=== PATIENT | male | born 1965 | race Caucasian/White ===

== ENCOUNTER 2017-12-08 20:05 | Emergency (ER) | payer BC, OTHER ==
[2017-12-08 21:19] VITALS: BP 138/66
--- NOTE | 2017-12-08 21:41 | UC ---
Throat Pain/Nasal Elliot HPI - HPI Summary HPI Summary: Since Thu pt with [facility], [facility] Pt with cough - green production no sore throat no ear pain sinuses plugged + PND continue chills decreased po mild diarrhea no nausea no flu vaccine Pt's medications reviewed this visit - History of Current Complaint Chief Complaint: UCGeneralIllness Stated Complaint: COUGH CONGESTION CHILLS Time Seen by Provider: 12/08/17 21:41 Hx Obtained From: Patient Onset/Duration: Gradual Onset Severity: Moderate Pain Intensity: 0 Cough: Productive Associated Signs & Symptoms: Positive: Wheezing, Fever - Allergies/Home Medications Allergies/Adverse Reactions: Allergies Allergy/AdvReac Type Severity Reaction Status Date / Time No Known Allergies Allergy Verified 12/08/17 21:19 PMH/Surg Hx/FS Hx/Imm Hx Previously Healthy: Yes - Surgical History Surgical History: Yes Surgery Procedure, Year, and Place: varicose vein removed 1994. appendectomy 1976. hernia 12/2015 - Family History Known Family History: Positive: Hypertension - Social History Occupation: Employed Full-time Lives: With Family Alcohol Use: Daily Alcohol Amount: 5-6 beers Substance Use Type: Marijuana Substance Use Comment - Amount & Last Used: 07/30/14 Smoking Status (MU): Former Smoker Review of Systems Constitutional: Fever, Fatigue Skin: Negative ENT: Nasal Discharge, Sinus Congestion Respiratory: Cough Cardiovascular: Negative Gastrointestinal: Negative Genitourinary: Negative Motor: Negative Neurovascular: Negative Musculoskeletal: Negative Neurological: Negative Psychological: Negative All Other Systems Reviewed And Are Negative: Yes Physical Exam Triage Information Reviewed: Yes Appearance: No Pain Distress, Well-Nourished Vital Signs: Initial Vital Signs Temp 97.9 F 12/08/17 21:15 Pulse 69 12/08/17 21:15 Resp 18 12/08/17 21:15 BP 138/66 12/08/17 21:15 Pulse Ox 99 12/08/17 21:15 Vital Signs Reviewed: Yes Eye Exam: Normal Eyes: Positive: Conjunctiva Clear ENT: Positive: Hearing grossly normal, Pharynx normal, Nasal congestion, TMs normal, Uvula midline Dental Exam: Normal Neck exam: Normal Neck: Positive: 1 Respiratory: Positive: Other: - coarse cough scattered wheeze no accessory muscle Cardiovascular Exam: Normal Cardiovascular: Positive: RRR, No Murmur Abdominal Exam: Normal Abdomen Description: Positive: Nontender, No Organomegaly Musculoskeletal Exam: Normal Musculoskeletal: Positive: Strength Intact Neurological Exam: Normal Neurological: Positive: Alert Psychological Exam: Normal Skin Exam: Normal Re-Evaluation - Re-Evaluation First Eval Comment: Pt improved following neb. states feels easire. wheezing resolved. mdi with spacer. amox. return precautions Throat Pain/Nasal Course/Dx - Course Course Of Treatment: Pt with coarse cough wheeze, body ache x 5 days. Will give neb, check flu and reassess. secretion precaution. hydrate. antipyretic - Differential Dx/Diagnosis Provider Diagnoses: acute bronchitis Discharge - Discharge Plan Condition: Stable Disposition: HOME Prescriptions: Amoxicillin PO (*) [Amoxicillin 875 MG (*)] 875 mg PO BID #20 tab Patient Education Materials: Acute Bronchitis (ED) Forms: *Work Release Referrals: Kristi Clements MD [Primary Care Provider] - Additional Instructions: - Stay well hydrated. Drink plenty of non-alcoholic, non-caffinated beverages. - Alternate ibuprofen (Advil, Motrin) 600mg and Tylenol 1000mg every 3 hours for pain or fever. Take with food. Do NOT take for more than 4-5 days. - These infections are spread by secretions - do NOT share eating or drinking utensils - clean items you share with other people such as cell phones, computer mouse, TV remote, computer tablets, etc. After you have taken antibiotics for 3 days, change your toothbrush and your pillowcase. - get plenty of restful sleep - humidify the air in the room where you sleep - boil water, run a hot steam shower, vaporizer, cups of water by heat register - okay to take over the counter decongestant and cough medication - use inhaler, 2 puffs every 4 hours for wheeze and cough. - contact your doctor, return here, or go to the emergency department with questions or concerns
[2017-12-08] MEDS ORDERED: Albuterol/Ipratropium NEB.SOL* Albuterol 2.5 MG/Ipratropium 0.5 MG 3 ML INH ONE (21:49)
[2017-12-08] MEDS ORDERED: Amoxicillin PO (*) 500 MG CAP PO ONE (22:18)
[2017-12-08] MEDS ORDERED: Albuterol HFA INHALER* 8 gm MDI INH ONE (22:18)
== END 2017-12-08 22:34 | disposition home or self-care (01) ==
LOC: UCCORT 20:05
DX: J20.9 Acute bronchitis, unspecified (principal); Z87.891 Personal history of nicotine dependence
CPT/HCPCS: 87502; 99213; A9270-GY; G0463

== ENCOUNTER 2018-08-04 17:16 | Emergency (ER) | payer OTHER ==
[2018-08-04 18:49] VITALS: BP 133/74
[2018-08-04] MEDS ORDERED: Ibuprofen ADULT LIQ* 600 MG/30 ML UDC PO ONE (19:19)
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
--- NOTE | 2018-08-05 09:49 | UC ---
- EKG/XRAY/CT Xray Comments: wet read correct Discharge - Sign-Out/Discharge Documenting (check all that apply): Post-Discharge Follow Up All imaging exams completed and their final reports reviewed: Yes - Discharge Plan Condition: Stable Disposition: HOME Patient Education Materials: Muscle Strain (ED) Referrals: Sergey Cooper MD [Medical Doctor] - As Soon As Possible Carola Lipscomb NP [Primary Care Provider] - Additional Instructions: DIAGNOSIS: RIGHT TRICEP MUSCLE TEAR. SLING FOR COMFORT. AVOID USE OF RIGHT ARM UNTIL CLEARED. - Billing Disposition and Condition Condition: STABLE Disposition: Home
== END 2018-08-04 20:06 | disposition home or self-care (01) ==
LOC: UCCORT 17:16
DX: S46.311A Strain of muscle, fascia and tendon of triceps, right arm, initial encounter (principal); V28.0XXA Motorcycle driver injured in noncollision transport accident in nontraffic accident, initial encounter; Y93.89 Activity, other specified; Y92.89 Other specified places as the place of occurrence of the external cause; I10 Essential (primary) hypertension; Z87.891 Personal history of nicotine dependence
CPT/HCPCS: 99213; A9270-GY; G0463